=== PATIENT | female | born 1980 | race Asian ===

== ENCOUNTER 2016-05-31 03:28 | Emergency (ER) | payer MEDICAID, OTHER ==
[~2016-05-31] VITALS: Ht 165.1 cm; Wt 86.4 kg
[~2016-05-31 03:28] MED LIST: BETA50CR5 TP; PREN-64 PO; RANI150T7 PO
[2016-05-31] MEDS ORDERED: BUPIVACAINE HCL/PF 0.5% 10 ML VIAL SQ ONE (04:15)
[2016-05-31] MEDS ORDERED: BUPIVACAINE HCL/PF 0.5% 30 ML VIAL INJ ONE (04:15)
[2016-05-31 04:27] VITALS: BP 130/83
== END 2016-05-31 04:39 | disposition home or self-care (01) ==
LOC: EMS 03:31
DX: K02.9 Dental caries, unspecified (principal); R51 Headache; Z88.8 Allergy status to other drugs, medicaments and biological substances
CPT/HCPCS: 64400; 99284; J3490

== ENCOUNTER 2016-11-28 15:51 | Emergency (ER) | payer SELFPAY ==
[~2016-11-28] VITALS: Ht 165.1 cm; Wt 81.8 kg
[2016-11-28] MEDS ORDERED: DOXYCYCLINE 100 MG CAPSULE PO ONE (17:00)
[2016-11-28 17:11] VITALS: BP 111/64
== END 2016-11-28 17:40 | disposition home or self-care (01) ==
LOC: EMS 15:53
DX: L03.113 Cellulitis of right upper limb (principal); Z88.8 Allergy status to other drugs, medicaments and biological substances
CPT/HCPCS: 99283

== ENCOUNTER 2019-05-23 13:39 | Emergency (ER) | payer OTHER ==
[~2019-05-23] VITALS: Ht 165.1 cm; Wt 81.8 kg
[~2019-05-23 13:39] MED LIST changes: -BETA50CR5 TP; +DIPH25CA85 PO; -PREN-64 PO; -RANI150T7 PO
[2019-05-23] MEDS ORDERED: BETAMETHASONE VAL 0.1% 15 GM OINTMENT TP ONE (15:45)
[2019-05-23] MEDS ORDERED: PredniSONE 20 MG TABLET PO ONE (15:45)
[2019-05-23 15:49] VITALS: BP 123/78
== END 2019-05-23 15:53 | disposition home or self-care (01) ==
LOC: EMS 13:39
DX: L25.9 Unspecified contact dermatitis, unspecified cause (principal); Z88.1 Allergy status to other antibiotic agents
CPT/HCPCS: 99283; J7512

== ENCOUNTER 2019-06-02 11:43 | Emergency (ER) | payer OTHER ==
[~2019-06-02] VITALS: Ht 165.1 cm; Wt 81.8 kg
[2019-06-02] MEDS ORDERED: PRAMOXINE HCL/BENZYL ALCOHOL 1% 35 GM GEL TP ONE (13:45)
[2019-06-02] MEDS ORDERED: DiphenhydrAMINE HCL 25 MG CAPSULE PO ONE (13:45)
[2019-06-02] MEDS ORDERED: FAMOTIDINE 20 MG TABLET PO ONE (13:45)
[2019-06-02] MEDS ORDERED: DEXAMETHASONE 4 MG TABLET PO ONE (13:45)
[2019-06-02 15:15] VITALS: BP 118/71
== END 2019-06-02 15:28 | disposition home or self-care (01) ==
LOC: EMS 11:47
DX: L50.9 Urticaria, unspecified (principal); Z88.1 Allergy status to other antibiotic agents
CPT/HCPCS: 99284; J8540

== ENCOUNTER 2019-06-17 08:51 | Emergency (ER) | payer OTHER ==
[~2019-06-17] VITALS: Ht 165.1 cm; Wt 81.8 kg
[2019-06-17] MEDS ORDERED: DIPH25CA85 PO (09:01)
[2019-06-17] MEDS ORDERED: DEXAMETHASONE SOD PHOS 4 MG/ML 5 ML VIAL IM ONE (10:45)
[2019-06-17 11:14] VITALS: BP 113/67
== END 2019-06-17 12:14 | disposition home or self-care (01) ==
LOC: EMS 08:52
DX: L30.9 Dermatitis, unspecified (principal); F12.90 Cannabis use, unspecified, uncomplicated; Z88.8 Allergy status to other drugs, medicaments and biological substances; Z79.899 Other long term (current) drug therapy
CPT/HCPCS: 96372; 99283; J1100